=== PATIENT | male | born 1965 | race Caucasian/White ===

== ENCOUNTER 2016-02-27 18:19 | Emergency (ER) | payer BC, OTHER ==
[2016-02-27] MEDS ORDERED: ASPIRIN 81 MG CHEW PO STA (18:43)
[2016-02-27] MEDS ORDERED: NITROGLYCERIN OINT 1 INCH/GM PACKET TOPICAL STA (18:43)
--- NOTE | 2016-02-27 18:48 | ED ---
General Adult HPI - General Chief complaint: Chest Pain Stated complaint: chest pain Time Seen by Provider: 02/27/16 18:30 Source: patient, RN notes reviewed Mode of arrival: wheelchair Limitations: no limitations - History of Present Illness Initial comments: This is a 50-year-old male who presents emergency Department complaining of left -sided chest pain under his armpit. Patient states the pain radiates to the center of his chest. Patient states movement with the left arm increases the pain. Patient states if he sits still and doesn't move or take a deep breath there is no pain. Patient states it does seem to be worse with deep breathing or significantly worse with coughing. Patient states she's mildly short of breath per patient states it started yesterday and got worse throughout the day today. Patient denies any diaphoresis. Patient denies any nausea. Patient denies any recent heavy lifting or exercise that is new. Patient denies any abdominal pain patient denies vomiting or diarrhea per patient denies any recent fever chills or cough. Patient does state he is a smoker he denies hypertension diabetes or high cholesterol. Patient denies any heart disease in the family he denies having any heart disease. Eyes any headache patient denies numbness weakness. Patient denies any lightheadedness dizziness or near syncopal episode. - Related Data Home Medications Medication Instructions Recorded Confirmed No Known Home Medications [No 02/27/16 02/27/16 Known Home Medications] Allergies Allergy/AdvReac Type Severity Reaction Status Date / Time No Known Allergies Allergy Verified 02/27/16 18:34 Review of Systems ROS Statement: Those systems with pertinent positive or pertinent negative responses have been documented in the HPI. ROS Other: All systems not noted in ROS Statement are negative. Past Medical History Past Medical History: No Reported History History of Any Multi-Drug Resistant Organisms: None Reported Past Surgical History: Tonsillectomy Past Psychological History: No Psychological Hx Reported Smoking Status: Current every day smoker Past Alcohol Use History: None Reported Past Drug Use History: None Reported General Exam - General Exam Comments Initial Comments: GENERAL: Patient is well-developed and well-nourished. Patient is nontoxic and well- hydrated and is in mild distress. ENT: Neck is soft and supple. No significant lymphadenopathy is noted. Oropharynx is clear. Moist mucous membranes. Neck has full range of motion without eliciting any pain. EYES: The sclera were anicteric and conjunctiva were pink and moist. Extraocular movements were intact and pupils were equal round and reactive to light. Eyelids were unremarkable. PULMONARY: Unlabored respirations. Good breath sounds bilaterally. No audible rales rhonchi or wheezing was noted. CARDIOVASCULAR: There is a regular rate and rhythm without any murmurs gallops or rubs. Chest pain is reproducible under the armpit not in the center of the chest ABDOMEN: Soft and nontender with normal bowel sounds. No palpable organomegaly was noted. There is no palpable pulsatile mass. SKIN: Skin is clear with no lesions or rashes and otherwise unremarkable. NEUROLOGIC: Patient is alert and oriented x3. Cranial nerves II through XII are grossly intact. Motor and sensory are also intact. Normal speech, volume and content. Symmetrical smile. MUSCULOSKELETAL: Normal extremities with adequate strength and full range of motion. No lower extremity swelling or edema. No calf tenderness. LYMPHATICS: No significant lymphadenopathy is noted PSYCHIATRIC: Normal psychiatric evaluation. Normal interpersonal interactions appears functionally intact in deals appropriately with others. No signs of depression. Patient is mildly anxious Limitations: no limitations Course Vital Signs 02/27/16 02/27/16 02/27/16 18:24 18:50 19:20 Temperature 98.2 F Pulse Rate 86 97 98 Respiratory 20 18 Rate Blood Pressure 119/68 129/71 111/68 O2 Sat by Pulse 98 96 95 Oximetry 02/27/16 19:50 Temperature Pulse Rate 92 Respiratory Rate Blood Pressure 118/68 O2 Sat by Pulse 95 Oximetry Medical Decision Making - Medical Decision Making EKG shows normal sinus rhythm at 88 bpm OK interval is 136 QRS is 84 QT interval 346 QTC is 418. Patient's EKG shows no ST segment elevation or depression or T wave abnormalities are noted Patient's chest x-ray was normal. I gave the patient Toradol and significantly reduce his pain. Patient states she can only feel that he takes a very large breath now or moves his arm to its limits. - Lab Data Result diagrams: 02/27/16 18:47 02/27/16 18:47 Lab Results 02/27/16 02/27/16 02/27/16 Range/Units 18:47 18:47 18:47 WBC 11.0 H (3.8-10.6) k/uL RBC 5.44 (4.30-5.90) m/uL Hgb 16.3 (13.0-17.5) gm/dL Hct 47.7 (39.0-53.0) % MCV 87.6 (80.0-100.0) fL MCH 30.0 (25.0-35.0) pg MCHC 34.2 (31.0-37.0) g/dL RDW 13.2 (11.5-15.5) % Plt Count 315 (150-450) k/uL Neutrophils % 62 % Lymphocytes % 26 % Monocytes % 8 % Eosinophils % 2 % Basophils % 0 % Neutrophils # 6.8 (1.3-7.7) k/uL Lymphocytes # 2.9 (1.0-4.8) k/uL Monocytes # 0.8 (0-1.0) k/uL Eosinophils # 0.2 (0-0.7) k/uL Basophils # 0.0 (0-0.2) k/uL PT (9.0-12.0) sec INR (<1.1) APTT (22.0-30.0) sec D-Dimer (<0.60) mg/L FEU Sodium 144 (137-145) mmol/L Potassium 4.4 (3.5-5.1) mmol/L Chloride 109 H (98-107) mmol/L Carbon Dioxide 25 (22-30) mmol/L Anion Gap 10 mmol/L BUN 14 (9-20) mg/dL Creatinine 0.80 (0.66-1.25) mg/dL Est GFR (MDRD) Af Amer >60 (>60 ml/min/1.73 sqM) Est GFR (MDRD) Non-Af >60 (>60 ml/min/1.73 sqM) Glucose 98 (74-99) mg/dL Calcium 9.2 (8.4-10.2) mg/dL Magnesium 2.0 (1.6-2.3) mg/dL Total Bilirubin 0.5 (0.2-1.3) mg/dL AST 31 (17-59) U/L ALT 53 (21-72) U/L Alkaline Phosphatase 83 (38-126) U/L Total Creatine Kinase 291 H (55-170) U/L CK-MB (CK-2) 1.5 (0.0-2.4) ng/mL CK-MB (CK-2) Rel Index 0.5 Troponin I <0.012 (0.000-0.034) ng/mL Total Protein 6.5 (6.3-8.2) g/dL Albumin 4.3 (3.5-5.0) g/dL 02/27/16 Range/Units 18:47 WBC (3.8-10.6) k/uL RBC (4.30-5.90) m/uL Hgb (13.0-17.5) gm/dL Hct (39.0-53.0) % MCV (80.0-100.0) fL MCH (25.0-35.0) pg MCHC (31.0-37.0) g/dL RDW (11.5-15.5) % Plt Count (150-450) k/uL Neutrophils % % Lymphocytes % % Monocytes % % Eosinophils % % Basophils % % Neutrophils # (1.3-7.7) k/uL Lymphocytes # (1.0-4.8) k/uL Monocytes # (0-1.0) k/uL Eosinophils # (0-0.7) k/uL Basophils # (0-0.2) k/uL PT 10.4 (9.0-12.0) sec INR 1.0 (<1.1) APTT 24.8 (22.0-30.0) sec D-Dimer 0.25 (<0.60) mg/L FEU Sodium (137-145) mmol/L Potassium (3.5-5.1) mmol/L Chloride (98-107) mmol/L Carbon Dioxide (22-30) mmol/L Anion Gap mmol/L BUN (9-20) mg/dL Creatinine (0.66-1.25) mg/dL Est GFR (MDRD) Af Amer (>60 ml/min/1.73 sqM) Est GFR (MDRD) Non-Af (>60 ml/min/1.73 sqM) Glucose (74-99) mg/dL Calcium (8.4-10.2) mg/dL Magnesium (1.6-2.3) mg/dL Total Bilirubin (0.2-1.3) mg/dL AST (17-59) U/L ALT (21-72) U/L Alkaline Phosphatase (38-126) U/L Total Creatine Kinase (55-170) U/L CK-MB (CK-2) (0.0-2.4) ng/mL CK-MB (CK-2) Rel Index Troponin I (0.000-0.034) ng/mL Total Protein (6.3-8.2) g/dL Albumin (3.5-5.0) g/dL Disposition Clinical Impression: Pleuritic chest pain Disposition: HOME SELF-CARE Condition: Good Instructions: Pleurisy (ED) Additional Instructions: Patient should take 600 mg of Motrin every 6 hours Referrals: Farhan Harris MD [Primary Care Provider] - 1-2 days Time of Disposition: 20:34
--- NOTE | 2016-02-27 19:09 | XR ---
EXAMINATION TYPE: XR chest 2V DATE OF EXAM: 02/27/2016 6:59 PM COMPARISON: Prior chest x-ray November 19, 2012 HISTORY: Chest pain and shortness of breath for 2 days. TECHNIQUE: Frontal and lateral views of the chest are obtained. FINDINGS: There is no suspicious focal air space opacity, pleural effusion, or pneumothorax seen. T here is minimal right basilar linear atelectasis. The cardiac silhouette size is within normal limits . The osseous structures are intact. IMPRESSION: No worrisome acute cardiopulmonary process on current study.
[2016-02-27 19:14] LABS: Basophils % (A) 0 %; CH 30.4; CHCM 34.8; Eosinophils # (A) 0.2 k/uL (0-0.7); Eosinophils % (A) 2 %; HCT 47.7 % (39.0-53.0); HDW 2.75; HGB 16.3 gm/dL (13.0-17.5); Luc # (Auto) 0.24; Luc % (Auto) 2; Lymphocytes # (A) 2.9 k/uL (1.0-4.8); Lymphocytes % (A) 26 %; MCHC 34.2 g/dL (31.0-37.0); MCV 87.6 fL (80.0-100.0); Mean Platelet Volume 6.6; Monocytes # (A) 0.8 k/uL (0-1.0); Monocytes % (A) 8 %; Neutrophils # (A) 6.8 k/uL (1.3-7.7); Neutrophils % (A) 62 %; RBC 5.44 m/uL (4.30-5.90); RDW 13.2 % (11.5-15.5); WBC (Perox) 10.95
[2016-02-27 19:22] LABS: ALT 53 U/L (21-72); AST 31 U/L (17-59); Alkaline Phosphatase 83 U/L (38-126); Anion Gap 10 mmol/L; Blood Urea Nitrogen 14 mg/dL (9-20); Calcium 9.2 mg/dL (8.4-10.2); Carbon Dioxide 25 mmol/L (22-30); Chloride 109 mmol/L (98-107); Glucose 98 mg/dL (74-99); Non-African American GFR(MDRD) >60 (>60 ml/min/1.73 sqM); Potassium 4.4 mmol/L (3.5-5.1); Sodium 144 mmol/L (137-145); Total Bilirubin 0.5 mg/dL (0.2-1.3); Total Protein 6.5 g/dL (6.3-8.2)
[2016-02-27 19:28] LABS: Partial Thromboplastin Time 24.8 sec (22.0-30.0); Prothrombin Time 10.4 sec (9.0-12.0)
[2016-02-27 19:36] LABS: Creatine Kinase 291 U/L (55-170)
[2016-02-27 19:49] LABS: Creatine Kinase MB 1.5 ng/mL (0.0-2.4); Troponin I <0.012 ng/mL (0.000-0.034)
[2016-02-27] MEDS ORDERED: KETOROLAC 60 MG/2 ML VIAL IVP STA (19:58)
[2016-02-27 20:48] VITALS: BP 120/66; PULSE 85; RESP 16; TEMP 97.5
== END 2016-02-27 20:47 | disposition home or self-care (01) ==
LOC: EC 18:19
DX: R07.81 Pleurodynia (principal); F17.200 Nicotine dependence, unspecified, uncomplicated; R06.02 Shortness of breath
CPT/HCPCS: 96374; 99285; 36415; 93005; 85379; 80053; 82550; 82553; 83735; 84484; 85025; 85610; 85730; 71020; J1885

== ENCOUNTER 2016-04-05 20:52 | Emergency (ER) | payer OTHER ==
[2016-04-05 21:05] VITALS: TEMP 98.9
[2016-04-05] MEDS ORDERED: ORPHENADRINE 30 MG/ML 2 ML VIAL IM STA (21:16)
[2016-04-05] MEDS ORDERED: methylPREDNISolone SOD SUCCI 125 MG/2 ML VIAL IM ONE (21:16)
[2016-04-05] MEDS ORDERED: KETOROLAC 60 MG/2 ML VIAL IM STA (21:16)
--- NOTE | 2016-04-05 21:19 | ED ---
Back Pain HPI - General Chief Complaint: Back Pain/Injury Stated Complaint: Back injury Time Seen by Provider: 04/05/16 21:08 Source: patient, RN notes reviewed Limitations: no limitations - History of Present Illness Initial Comments: This is a 51-year-old male who presents with complaints of the onset of back pain over last several days. He states that sharp and radiates down into his left buttock he states it initially started on the right low back area but the left greater than right he denies any loss of function to his lower extremities denies any urinary or fecal incontinence. he is not believe he had any previous back injuries but he still a heavy lifting. pain is 9/10 in severity MD Complaint: back pain - Related Data Previous Rx's Medication Instructions Recorded Cyclobenzaprine [Flexeril] 10 mg PO TID #14 tab 04/05/16 Hydrocodone/Acetaminophen [[place] 1 each PO Q6HR PRN #20 tab 04/05/16 5-325] Ibuprofen [Motrin] 800 mg PO Q6HR PRN #20 tab 04/05/16 predniSONE 20 mg PO BID #10 tab 04/05/16 Allergies Allergy/AdvReac Type Severity Reaction Status Date / Time No Known Allergies Allergy Verified 04/05/16 21:25 Review of Systems ROS Statement: Those systems with pertinent positive or pertinent negative responses have been documented in the HPI. ROS Other: All systems not noted in ROS Statement are negative. Past Medical History Past Medical History: No Reported History Additional Past Medical History / Comment(s): chronic back pain History of Any Multi-Drug Resistant Organisms: None Reported Past Surgical History: Hernia Repair, Tonsillectomy Past Psychological History: No Psychological Hx Reported Smoking Status: Current every day smoker Past Alcohol Use History: None Reported Past Drug Use History: None Reported General Exam - General Exam Comments Initial Comments: This is a well-developed well-nourished awake alert oriented 3 male Limitations: no limitations General appearance: alert, anxious, in distress Head exam: Present: atraumatic Neck exam: Present: normal inspection. Absent: tenderness, meningismus, lymphadenopathy Respiratory exam: Present: normal lung sounds bilaterally. Absent: respiratory distress, wheezes, rales, rhonchi, stridor Cardiovascular Exam: Present: regular rate, normal rhythm, normal heart sounds. Absent: systolic murmur, diastolic murmur, rubs, gallop, clicks Extremities exam: Present: normal inspection, full ROM, normal capillary refill. Absent: tenderness, pedal edema, joint swelling, calf tenderness Back exam: Present: tenderness (There is tenderness to palpation over the bilateral SI joints with tenderness over the left gluteus. The exam is consistent with sciatica.) Neurological exam: Present: alert, oriented X3, CN II-XII intact, reflexes normal. Absent: motor sensory deficit Psychiatric exam: Present: anxious Skin exam: Present: warm, dry, intact, normal color. Absent: rash Course Vital Signs 04/05/16 21:02 Temperature 98.9 F Pulse Rate 102 H Respiratory 20 Rate Blood Pressure 131/83 O2 Sat by Pulse 99 Oximetry - Reevaluation(s) Reevaluation #1: 04/05/16 22:14 The patient did have a long conversation regarding smoking and cessation. He was ultimately referred to his doctor for medical 80 states he cannot stop cold turkey by himself. The conversation lasted 3.1 minutes Medical Decision Making - Medical Decision Making I did discuss findings with the patient. He has received his medication and will be discharged home he is urged follow-up with his doctor return when necessary he'll be placed on appropriate medication for a short course. - Lab Data Lab Results 04/05/16 Range/Units 21:15 Urine Color Yellow Urine Appearance Clear (Clear) Urine pH 5.5 (5.0-8.0) Ur Specific [place] 1.027 (1.001-1.035) Urine Protein Trace H (Negative) Urine Glucose (UA) 2+ H (Negative) Urine Ketones Negative (Negative) Urine Blood Negative (Negative) Urine Nitrate Negative (Negative) Urine Bilirubin Negative (Negative) Urine Urobilinogen 2.0 (<2.0) mg/dL Ur Leukocyte Esterase Negative (Negative) - Radiology Data Radiology results: report reviewed (I did review the imaging and report no acute findings.), image reviewed Disposition Clinical Impression: Mechanical back pain, Sciatica Disposition: HOME SELF-CARE Condition: Good Instructions: Acute Low Back Pain (ED), Chronic Back Pain (ED), Sciatica (ED) Prescriptions: Cyclobenzaprine [Flexeril] 10 mg PO TID #14 tab Hydrocodone/Acetaminophen [[place] 5-325] 1 each PO Q6HR PRN #20 tab PRN Reason: Pain Ibuprofen [Motrin] 800 mg PO Q6HR PRN #20 tab PRN Reason: Pain predniSONE 20 mg PO BID #10 tab
[2016-04-05 21:54] LABS: Appearance,Urine Clear (Clear); Bilirubin,Urine Negative (Negative); Glucose,Urine (UA) 2+ (Negative); Ketones,Urine Negative (Negative); Leukocyte Esterase,Urine Negative (Negative); Nitrite,Urine Negative (Negative); PH, Urine 5.5 (5.0-8.0); Protein,Urine Trace (Negative); Specific Gravity,Urine 1.027 (1.001-1.035); UA Billing (MACRO vs. MICRO) CHEM
--- NOTE | 2016-04-05 22:01 | XR ---
Lumbosacral spine HISTORY: Low back pain 5 views of the lumbosacral spine No comparisons There is a levoscoliosis centered at L3. Sclerosis present at the sacroiliac joints may be due to str ess changes. No spondylolysis or spondylolisthesis. Lumbar vertebral bodies show preserved height and bone mineralization. Loss of disc height at L5-S1. Multilevel spondylosis noted. IMPRESSION: Degenerative disc disease and scoliosis. Consider lumbar MRI.
[2016-04-05 22:40] VITALS: BP 142/99; PULSE 69; RESP 18
== END 2016-04-05 22:38 | disposition home or self-care (01) ==
LOC: EC 20:52
DX: M54.40 Lumbago with sciatica, unspecified side (principal); F17.200 Nicotine dependence, unspecified, uncomplicated
CPT/HCPCS: 81003; 72110; 99283; 96372 ×3; J2360; J2930; J1885

== ENCOUNTER → 2016-05-10 | Outpatient (CLI) | payer OTHER ==
--- NOTE | 2016-05-10 09:40 | MR ---
EXAMINATION TYPE: MR lumbar spine wo con DATE OF EXAM: 05/10/2016 9:25 AM COMPARISON: X-ray 04/05/2016 HISTORY: Back pain TECHNIQUE: T1 and T2 axial and sagittal images of the lumbar spine are submitted. FINDINGS: There is no abnormal signal seen within the visualized spinal cord or paraspinal soft tissu es. There is an indeterminate lesion involving the upper pole of the left kidney. CT scan recommended . There is a simple appearing right renal cyst. Thickening of the adrenal glands is nonspecific. At L1-2 there is no disc herniation or canal stenosis. No foraminal encroachment. At L2-3 there is mild disc desiccation. Mild hypertrophic change of the facets. No focal herniation o r canal stenosis. No foraminal encroachment. At L3-4 there is mild disc desiccation but no disc herniation or canal stenosis. Mild hypertrophic ch [place] of the facets. Neural foramina remain patent. At L4-5 there is mild circumferential disc bulging with facet arthropathy. Mild effacement of thecal sac and mild bilateral foraminal encroachment. At L5-S1 there is mild to moderate degenerative disc disease. No canal stenosis. Mild facet arthropa thy. Minimal circumferential disc bulging. Mild to moderate bilateral foraminal encroachment. IMPRESSION: 1. Multilevel mild to moderate degenerative disc disease with disc bulging most pronounced at L4-5 wi th mild effacement of thecal sac and mild bilateral foraminal encroachment. 2. Mild to moderate foraminal encroachment L5-S1 due to hypertrophic changes. 3. There is a question of an upper pole left renal lesion. Either ultrasound or CT of the abdomen rec ommended for further evaluation.
== END ==
LOC: RADMRIMAIN 08:35
PROVIDERS: ATTEND Internal Medicine
DX: M51.36 Other intervertebral disc degeneration, lumbar region (principal); M51.37 Other intervertebral disc degeneration, lumbosacral region; M51.26 Other intervertebral disc displacement, lumbar region; M48.06 Spinal stenosis, lumbar region
CPT/HCPCS: 72148

== ENCOUNTER → 2016-06-06 | Outpatient (CLI) | payer OTHER ==
--- NOTE | 2016-06-06 15:05 | US ---
EXAMINATION TYPE: US kidneys/renal and bladder DATE OF EXAM: 06/06/2016 2:43 PM COMPARISON: Correlation MRI 05/10/2016 CLINICAL HISTORY: 51-year-old male N28.9 LEFT RENAL LESION. Left renal lesion seen on MRI. TECHNIQUE: Multiple sonographic images of the kidneys and bladder are obtained. FINDINGS: Right Kidney: 11.3 x 5.9 x 5.3 cm without hydronephrosis. There is a tiny central 6 mm cyst. Left Kidney: 11.0 x 5.9 x 5.8 cm without hydronephrosis. There is a slightly lobulated contour withou t a discrete renal mass with particular attention to the upper pole. 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 Bilateral Jets seen: Only one ureteral jet is seen during the course of the exam. IMPRESSION: 1. No hydronephrosis. 2. No discrete mass is seen involving the left kidney with particular attention to the upper pole. MR I findings are suspected to be artifactual. Recommend 6 month follow-up renal ultrasound to reassess.
== END | disposition home or self-care (01) ==
LOC: RADUSWWP 14:08
PROVIDERS: ATTEND Internal Medicine
DX: N28.9 Disorder of kidney and ureter, unspecified (principal)
CPT/HCPCS: 76770

== ENCOUNTER 2017-03-04 09:44 | Inpatient (IN) | payer OTHER ==
[2017-03-04] MEDS ORDERED: ONDANSETRON 4 MG/2 ML VIAL IVP STA (09:55)
[2017-03-04] MEDS ORDERED: SODIUM CHLORIDE 0.9% 1,000 ML IV STA (09:55)
[2017-03-04] MEDS ORDERED: HYDROmorphone 2 MG/ML 1 ML SYRINGE IVP STA (09:57)
--- NOTE | 2017-03-04 10:21 | ED ---
Abdominal Pain HPI - General Chief Complaint: Abdominal Pain Stated Complaint: Abdominal pain Time Seen by Provider: 03/04/17 09:50 Source: patient Mode of arrival: wheelchair Limitations: no limitations - History of Present Illness Initial Comments: 51-year-old male patient presents to the emergency department states complaints of right lower quadrant abdominal pain. Patient states that the pain started around 0400 this morning. He states the pain is sharp in nature. States it worsens when he tries to stand up or with any movement. He is currently rating his pain as 7 out of 10 on a pain scale. States he has been nauseated however has not vomited. He denies ever having pain similar to this in the past. He denies any constipation or diarrhea. Patient denies any recent rash, fever, chills, shortness breath, chest pain, back pain, numbness, tingling, dizziness, weakness, hematuria, dysuria, urinary urgency, urinary frequency, headache, visual changes, or any other complaints. - Related Data Home Medications Medication Instructions Recorded Confirmed oxyCODONE-APAP 10-325MG [Percocet 1 tab PO QID PRN 03/04/17 03/04/17 10-325 mg] Allergies Allergy/AdvReac Type Severity Reaction Status Date / Time No Known Allergies Allergy Verified 03/04/17 11:42 Review of Systems ROS Statement: Those systems with pertinent positive or pertinent negative responses have been documented in the HPI. ROS Other: All systems not noted in ROS Statement are negative. Past Medical History Past Medical History: No Reported History Additional Past Medical History / Comment(s): chronic back pain History of Any Multi-Drug Resistant Organisms: None Reported Past Surgical History: Hernia Repair, Tonsillectomy Past Psychological History: No Psychological Hx Reported Smoking Status: Current every day smoker Past Alcohol Use History: None Reported Past Drug Use History: None Reported General Exam Limitations: no limitations Course Vital Signs 03/04/17 03/04/17 09:45 11:29 Temperature 98.0 F Pulse Rate 108 H 92 Respiratory 20 20 Rate Blood Pressure 121/64 109/56 O2 Sat by Pulse 98 92 L Oximetry Medical Decision Making - Medical Decision Making 51-year-old male patient presents to the emergency department today for evaluation of right lower quadrant abdominal pain. Physical examination did reveal right lower quadrant abdominal tenderness and abdominal guarding. Labs reviewed and did reveal a white blood cell count of 16. KUB x-ray of the abdomen was normal. CT of the abdomen and pelvis was positive for acute appendicitis. Patient will be admitted to Dr. Peters. Zosyn will be started. IV hydration and pain medication will be provided. - Lab Data Result diagrams: 03/04/17 10:30 03/04/17 10:30 Lab Results 03/04/17 03/04/17 03/04/17 Range/Units 10:30 10:30 10:30 WBC 16.0 H (3.8-10.6) k/uL RBC 5.87 (4.30-5.90) m/uL Hgb 17.4 (13.0-17.5) gm/dL Hct 50.8 (39.0-53.0) % MCV 86.5 (80.0-100.0) fL MCH 29.6 (25.0-35.0) pg MCHC 34.2 (31.0-37.0) g/dL RDW 12.9 (11.5-15.5) % Plt Count 341 (150-450) k/uL Neutrophils % 79 % Lymphocytes % 12 % Monocytes % 6 % Eosinophils % 1 % Basophils % 0 % Neutrophils # 12.7 H (1.3-7.7) k/uL Lymphocytes # 1.9 (1.0-4.8) k/uL Monocytes # 1.0 (0-1.0) k/uL Eosinophils # 0.2 (0-0.7) k/uL Basophils # 0.1 (0-0.2) k/uL Sodium 142 (137-145) mmol/L Potassium 5.1 (3.5-5.1) mmol/L Chloride 104 (98-107) mmol/L Carbon Dioxide 26 (22-30) mmol/L Anion Gap 12 mmol/L BUN 21 H (9-20) mg/dL Creatinine 1.00 (0.66-1.25) mg/dL Est GFR (MDRD) Af Amer >60 (>60 ml/min/1.73 sqM) Est GFR (MDRD) Non-Af >60 (>60 ml/min/1.73 sqM) Glucose 105 H (74-99) mg/dL Plasma Lactic Acid [place] 0.9 (0.7-2.0) mmol/L Calcium 9.5 (8.4-10.2) mg/dL Total Bilirubin 0.5 (0.2-1.3) mg/dL AST 25 (17-59) U/L ALT 49 (21-72) U/L Alkaline Phosphatase 99 (38-126) U/L Total Protein 7.3 (6.3-8.2) g/dL Albumin 4.6 (3.5-5.0) g/dL Amylase 79 (30-110) U/L Lipase 108 (23-300) U/L Urine Color Urine Appearance (Clear) Urine pH (5.0-8.0) Ur Specific [place] (1.001-1.035) Urine Protein (Negative) Urine Glucose (UA) (Negative) Urine Ketones (Negative) Urine Blood (Negative) Urine Nitrite (Negative) Urine Bilirubin (Negative) Urine Urobilinogen (<2.0) mg/dL Ur Leukocyte Esterase (Negative) 03/04/17 Range/Units 11:28 WBC (3.8-10.6) k/uL RBC (4.30-5.90) m/uL Hgb (13.0-17.5) gm/dL Hct (39.0-53.0) % MCV (80.0-100.0) fL MCH (25.0-35.0) pg MCHC (31.0-37.0) g/dL RDW (11.5-15.5) % Plt Count (150-450) k/uL Neutrophils % % Lymphocytes % % Monocytes % % Eosinophils % % Basophils % % Neutrophils # (1.3-7.7) k/uL Lymphocytes # (1.0-4.8) k/uL Monocytes # (0-1.0) k/uL Eosinophils # (0-0.7) k/uL Basophils # (0-0.2) k/uL Sodium (137-145) mmol/L Potassium (3.5-5.1) mmol/L Chloride (98-107) mmol/L Carbon Dioxide (22-30) mmol/L Anion Gap mmol/L BUN (9-20) mg/dL Creatinine (0.66-1.25) mg/dL Est GFR (MDRD) Af Amer (>60 ml/min/1.73 sqM) Est GFR (MDRD) Non-Af (>60 ml/min/1.73 sqM) Glucose (74-99) mg/dL Plasma Lactic Acid [place] (0.7-2.0) mmol/L Calcium (8.4-10.2) mg/dL Total Bilirubin (0.2-1.3) mg/dL AST (17-59) U/L ALT (21-72) U/L Alkaline Phosphatase (38-126) U/L Total Protein (6.3-8.2) g/dL Albumin (3.5-5.0) g/dL Amylase (30-110) U/L Lipase (23-300) U/L Urine Color Yellow Urine Appearance Clear (Clear) Urine pH 6.5 (5.0-8.0) Ur Specific [place] 1.018 (1.001-1.035) Urine Protein Negative (Negative) Urine Glucose (UA) Negative (Negative) Urine Ketones Negative (Negative) Urine Blood Negative (Negative) Urine Nitrite Negative (Negative) Urine Bilirubin Negative (Negative) Urine Urobilinogen <2.0 (<2.0) mg/dL Ur Leukocyte Esterase Negative (Negative) - Radiology Data Radiology results: report reviewed, image reviewed CT of the abdomen and pelvis with contrast was obtained, report was reviewed in its entirety. Impression by Dr. Gamez shows evidence of acute appendicitis. KUB x-ray of the abdomen shows normal bowel gas pattern. No evidence of obstruction or free air. No unusual calcifications. Impression by Dr. Gamez shows normal abdomen. Disposition Clinical Impression: Acute appendicitis Disposition: HOME SELF-CARE Condition: Serious Referrals: Farhan Harris MD [Primary Care Provider] - 1-2 days Decision to Admit Reason: Admit from EC Decision Date: 03/04/17 Decision Time: 13:08
[2017-03-04 11:00] LABS: Basophils # (A) 0.1 k/uL (0-0.2); Basophils % (A) 0 %; Eosinophils # (A) 0.2 k/uL (0-0.7); Eosinophils % (A) 1 %; HCT 50.8 % (39.0-53.0); HGB 17.4 gm/dL (13.0-17.5); Lymphocytes # (A) 1.9 k/uL (1.0-4.8); Lymphocytes % (A) 12 %; MCH 29.6 pg (25.0-35.0); MCHC 34.2 g/dL (31.0-37.0); MCV 86.5 fL (80.0-100.0); Mean Platelet Volume 6.8; Monocytes % (A) 6 %; Neutrophils # (A) 12.7 k/uL (1.3-7.7); Neutrophils % (A) 79 %; Platelet Count 341 k/uL (150-450); RBC 5.87 m/uL (4.30-5.90); RDW 12.9 % (11.5-15.5)
[2017-03-04 11:01] LABS: ALT 49 U/L (21-72); AST 25 U/L (17-59); Albumin 4.6 g/dL (3.5-5.0); Alkaline Phosphatase 99 U/L (38-126); Amylase 79 U/L (30-110); Anion Gap 12 mmol/L; Blood Urea Nitrogen 21 mg/dL (9-20); Calcium 9.5 mg/dL (8.4-10.2); Carbon Dioxide 26 mmol/L (22-30); Chloride 104 mmol/L (98-107); Glucose 105 mg/dL (74-99); Lipase 108 U/L (23-300); Potassium 5.1 mmol/L (3.5-5.1); Sodium 142 mmol/L (137-145); Total Bilirubin 0.5 mg/dL (0.2-1.3); Total Protein 7.3 g/dL (6.3-8.2)
--- NOTE | 2017-03-04 11:03 | XR ---
EXAMINATION TYPE: XR KUB , 2 VIEWS DATE OF EXAM ORDERED: 03/04/2017 HISTORY: abdominal pain. COMPARISON: None. FINDINGS: The lung bases are clear. Within the abdomen, the abdominal gas pattern is normal. There is no evidence of obstruction or free air. No unusual calcifications are seen. IMPRESSION: NORMAL ABDOMEN.
[2017-03-04] MEDS ORDERED: RX INFO: IV CONTRAST WAS GIVEN 1 EACH MISC MISCELLANE PRN (11:21)
[2017-03-04 11:39] LABS: Appearance,Urine Clear (Clear); Bilirubin,Urine Negative (Negative); Blood,Urine Negative (Negative); Color,Urine Yellow; Glucose,Urine (UA) Negative (Negative); Ketones,Urine Negative (Negative); Leukocyte Esterase,Urine Negative (Negative); Nitrite,Urine Negative (Negative); PH, Urine 6.5 (5.0-8.0); Protein,Urine Negative (Negative); Specific Gravity,Urine 1.018 (1.001-1.035); Urobilinogen,Urine <2.0 mg/dL (<2.0)
--- NOTE | 2017-03-04 12:21 | CT ---
EXAMINATION TYPE: CT abdomen pelvis w con DATE OF EXAM: 03/04/2017 REFERENCE: Previous study dated 11/17/2012. HISTORY: Pain HISTORY: Abdominal pain, Right lower quadrant REFERENCE: NONE CT DLP: 1196.50 mGy Automated exposure control for dose reduction was used. TECHNIQUE: Helical acquisition through the abdomen and pelvis was obtained following the oral ingesti on of without Oral Contrast and following intravenous administration of 100 ml mL of Omnipaque 300. T he data was reformatted in axial, coronal and sagittal projections. FINDINGS: There is mild dependent atelectasis in the dependent portions of the lungs. There is no pl eural or pericardial fluid. The heart is not enlarged. Within the abdomen, the liver, spleen and gallbladder are normal. Both adrenal glands are normal. Both kidneys demonstrate function and appear morphologically normal. The pancreas is unremarkable. There is no significant retroperitoneal, iliac or inguinal adenopathy. The bladder is unremarkable. There is no significant diverticular change and there is no radiographic evidence of diverticulitis. The appendix is grossly thickened measuring 1.1 cm. There is mild inflammatory change adjacent to the appendix. There is no evidence of perforation or abscess formation. Small bowel loops are normal. No free fluid and no free air is seen. No bony lesion is seen. IMPRESSION: EVIDENCE OF ACUTE APPENDICITIS.
[2017-03-04] MEDS ORDERED: HYDROmorphone 2 MG/ML 1 ML SYRINGE IVP PRN (13:01)
[2017-03-04] MEDS ORDERED: ONDANSETRON 4 MG/2 ML VIAL IVP PRN (13:01)
[2017-03-04] MEDS ORDERED: NALOXONE 0.4 MG/ML 1 ML VIAL IV PRN ×2 (13:01→16:35)
[2017-03-04] MEDS ORDERED: PIPERACILLIN-TAZOBACTAM 3.375 GM in DEXTROSE/WATER 1 50ML.BAG IVPB STA (13:08)
[2017-03-04] MEDS: SODIUM CHLORIDE 0.9% 1,000 ML IV SCH (13:44)
[2017-03-04 14:25] VITALS: BMI 29.9
--- NOTE | 2017-03-04 14:58 | P.GSHP ---
History of Present Illness H&P Date: 03/04/17 Chief Complaint: Acute appendicitis Patient minute to the hospital with right lower quadrant pain. This began yesterday morning. He has had chills but no fevers. White blood cell count is elevated. No nausea or vomiting. No change in bowel habits. CAT scan showed acute appendicitis. The patient had a previous attempted laparoscopic inguinal hernia repair but apparently they could not obtain insufflation at the umbilicus. He was told he had scar tissue there. He may have a small umbilical hernia. - Review of Systems Comment: The patient denies any acute changes in vision or hearing, no dysphagia or odynophagia, no chest pain or shortness of breath, no dysuria or hematuria, no headache, no runny nose, no rectal bleeding or melena, no unexplained weight loss Past Medical History Past Medical History: No Reported History Additional Past Medical History / Comment(s): chronic back pain, Blind in right eye, torn muscle in left shoulder History of Any Multi-Drug Resistant Organisms: None Reported Past Surgical History: Hernia Repair, Tonsillectomy Past Psychological History: No Psychological Hx Reported Smoking Status: Current every day smoker Past Alcohol Use History: None Reported Past Drug Use History: None Reported Medications and Allergies Home Medications Medication Instructions Recorded Confirmed Type oxyCODONE-APAP 10-325MG [Percocet 1 tab PO QID PRN 03/04/17 03/04/17 History 10-325 mg] Allergies Allergy/AdvReac Type Severity Reaction Status Date / Time No Known Allergies Allergy Verified 03/04/17 11:42 Surgical - Exam Vital Signs Temp Pulse Resp BP Pulse Ox 98.0 F 108 H 20 121/64 98 03/04/17 09:45 03/04/17 09:45 03/04/17 09:45 03/04/17 09:45 03/04/17 09:45 Physical exam: General: Well-developed, well-nourished HEENT: Normocephalic, sclerae nonicteric Abdomen: Right lower quadrant tenderness with rebound, previous scars noted, small umbilical hernia Extremities: No edema Neuro: Alert and oriented Results - Labs 03/04/17 10:30 03/04/17 10:30 Abnormal Lab Results - Last 24 Hours (Table) 03/04/17 03/04/17 Range/Units 10:30 10:30 WBC 16.0 H (3.8-10.6) k/uL Neutrophils # 12.7 H (1.3-7.7) k/uL BUN 21 H (9-20) mg/dL Glucose 105 H (74-99) mg/dL Diabetes panel 03/04/17 Range/Units 10:30 Sodium 142 (137-145) mmol/L Potassium 5.1 (3.5-5.1) mmol/L Chloride 104 (98-107) mmol/L Carbon Dioxide 26 (22-30) mmol/L BUN 21 H (9-20) mg/dL Creatinine 1.00 (0.66-1.25) mg/dL Glucose 105 H (74-99) mg/dL Calcium 9.5 (8.4-10.2) mg/dL AST 25 (17-59) U/L ALT 49 (21-72) U/L Alkaline Phosphatase 99 (38-126) U/L Total Protein 7.3 (6.3-8.2) g/dL Albumin 4.6 (3.5-5.0) g/dL Calcium panel 03/04/17 Range/Units 10:30 Calcium 9.5 (8.4-10.2) mg/dL Albumin 4.6 (3.5-5.0) g/dL Pituitary panel 03/04/17 Range/Units 10:30 Sodium 142 (137-145) mmol/L Potassium 5.1 (3.5-5.1) mmol/L Chloride 104 (98-107) mmol/L Carbon Dioxide 26 (22-30) mmol/L BUN 21 H (9-20) mg/dL Creatinine 1.00 (0.66-1.25) mg/dL Glucose 105 H (74-99) mg/dL Calcium 9.5 (8.4-10.2) mg/dL Adrenal panel 03/04/17 Range/Units 10:30 Sodium 142 (137-145) mmol/L Potassium 5.1 (3.5-5.1) mmol/L Chloride 104 (98-107) mmol/L Carbon Dioxide 26 (22-30) mmol/L BUN 21 H (9-20) mg/dL Creatinine 1.00 (0.66-1.25) mg/dL Glucose 105 H (74-99) mg/dL Calcium 9.5 (8.4-10.2) mg/dL Total Bilirubin 0.5 (0.2-1.3) mg/dL AST 25 (17-59) U/L ALT 49 (21-72) U/L Alkaline Phosphatase 99 (38-126) U/L Total Protein 7.3 (6.3-8.2) g/dL Albumin 4.6 (3.5-5.0) g/dL Assessment and Plan (1) Acute appendicitis Narrative/Plan: Begin IV antibiotics. Will proceed with laparoscopic possible open appendectomy. Risks of bleeding, infection, bowel injury, abscess, hernia, conversion to an open procedure, and anesthesia-related complications were discussed. He understands and wishes to proceed. Current Visit: Yes Status: Acute Code(s): K35.80 - UNSPECIFIED ACUTE APPENDICITIS SNOMED Code(s): 54693306
[2017-03-04] MEDS ORDERED: ROCURONIUM BROMIDE 10 MG/ML 10 ML VIAL IV ONE (15:42)
[2017-03-04] MEDS ORDERED: KETOROLAC 30 MG/ML 1 ML VIAL ONE (15:42)
[2017-03-04] MEDS ORDERED: PROPOFOL 10 MG/ML 20 ML VIAL IV ONE (15:42)
[2017-03-04] MEDS ORDERED: MIDAZOLAM 2 MG/2 ML VIAL ONE (15:42)
[2017-03-04] MEDS ORDERED: ONDANSETRON 4 MG/2 ML VIAL ONE (15:42)
[2017-03-04] MEDS ORDERED: LIDOCAINE 1% INJ 10MG/ML (20 ML MDV) ONE (15:42)
[2017-03-04] MEDS ORDERED: HYDROmorphone (PF) 1 MG/ML ONE (15:42)
[2017-03-04] MEDS ORDERED: fentaNYL (PF) 50 MCG/ML 2 ML AMP ONE (15:42)
[2017-03-04] MEDS ORDERED: IV FLUID CONTINUATION 1,000 ML IV ONE (15:42)
[2017-03-04] MEDS ORDERED: SUCCINYLCHOLINE CHLORIDE 100 MG/5 ML SYR IV ONE (15:42)
[2017-03-04] MEDS ORDERED: BUPIVACAINE (PF) 0.25% 30 ML VIAL SQ ONE (16:12)
[2017-03-04] MEDS ORDERED: oxyCODONE-APAP 7.5-325MG 1 EACH TAB PO PRN (16:35)
--- NOTE | 2017-03-04 16:39 | P.OP ---
Date of Procedure: 03/04/17 Procedure(s) Performed: PREOPERATIVE DIAGNOSIS: Acute appendicitis POSTOPERATIVE DIAGNOSIS: Same PROCEDURE: Laparoscopic appendectomy SURGEON: Kirk EBL: Total ANESTHESIA: General COMPLICATIONS: None OPERATIVE PROCEDURE: The patient was brought and placed on the operating table in the supine position. The patient was placed under general anesthesia. The abdomen was prepped and draped in the usual sterile fashion. A small vertical infraumbilical incision was made. The fascia was retracted anteriorly with Orly forceps. The Veress needle was advanced into the perineal cavity. The saline drop test was normal. Insufflation took place to 15 mmHg. A 5 mm trocar was then placed. An additional 5 mm suprapubic trocar was placed under direct visualization as well as a 12 mm left lower quadrant trocar under direct visualization. There was a small adhesion between the omentum and the right internal inguinal ring from prior hernia repair. This was lysed using electrocautery. The appendix was inspected. It was acutely inflamed. The mesoappendix was dissected. The base of the appendix was divided using a linear 45 mm intestinal stapler. The mesentery itself was divided using both the 12 no matter clipper and the malcolm load stapler. The area was then irrigated. No further purulence or bleeding was seen. The appendix was brought out of the peritoneal cavity through the left lower quadrant trocar site using an Endo Catch bag. The fascia at the 12 mm site was closed using a [id number] 0 Vicryl stitch. The skin at all 3 sites was closed using 4-0 Monocryl sutures. Steri-Strips and sterile dressings then applied. DISPOSITION: Stable to recovery room
[2017-03-04 17:16] VITALS: RESP 16
[2017-03-05] MEDS: PIPERACILLIN-TAZOBACTAM 3.375 GM in DEXTROSE/WATER 1 50ML.BAG IVPB SCH ×2 (01:03→09:00)
[2017-03-05] MEDS: SODIUM CHLORIDE 0.9% 1,000 ML IV SCH ×2 (05:21→09:00)
[2017-03-05] MEDS ORDERED: PANTOPRAZOLE 40 MG/10 ML VIAL IV SCH (09:00)
[2017-03-05 09:34] VITALS: BP 111/67; PULSE 71; TEMP 98
--- NOTE | 2017-03-05 12:08 | P.DS ---
Providers Date of admission: 03/04/17 13:04 Expected date of discharge: 03/05/17 Attending physician: Inder Bradley Primary care physician: Steven Real - Discharge Diagnosis(es) (1) Acute appendicitis Patient admitted yesterday through the emergency department with acute appendicitis. Patient was started on broad-spectrum antibiotics. He underwent laparoscopic appendectomy. Postoperatively the patient has done quite well. He is anxious to be discharged today. Incisions are clean and dry. No antibiotics planned post discharge. Prescription for pain medicine provided. He will follow-up with me in 1 week. Status: Acute Patient Condition at Discharge: Serious Plan - Discharge Summary Discharge Rx Participant: No New Discharge Prescriptions: New oxyCODONE HCL/ACETAMINOPHEN [Percocet 10-325 mg] 1 tab PO Q6HR PRN #20 tab PRN Reason: pain No Action oxyCODONE-APAP 10-325MG [Percocet 10-325 mg] 1 tab PO QID PRN PRN Reason: Pain Discharge Medication List oxyCODONE HCL/ACETAMINOPHEN [Percocet 10-325 mg] 1 tab PO Q6HR PRN #20 tab 03/04 [Rx] oxyCODONE-APAP 10-325MG [Percocet 10-325 mg] 1 tab PO QID PRN 03/04/17 [History] Follow up Appointment(s)/Referral(s): Inder Bradley MD [Medical Doctor] - 1 Week Farhan Harris MD [Primary Care Provider] - 1-2 days Patient Instructions/Handouts: *Surgery [facility] - Laparoscopic Cholecystectomy Discharge Instructions, Appendicitis (GEN), Laparoscopic Appendectomy (DC) Discharge Disposition: HOME SELF-CARE
== END 2017-03-05 10:33 | disposition home or self-care (01) | DRG 343 ==
LOC: EC 09:44 → 3SUR 13:04
PROVIDERS: ADMIT Surgery; ATTEND Surgery
PROC: 0DTJ4ZZ Resection of Appendix, Percutaneous Endoscopic Approach (ICD-10-PCS; principal; 2017-03-04 15:00)
DX: K35.80 Unspecified acute appendicitis (principal); F17.200 Nicotine dependence, unspecified, uncomplicated; G89.29 Other chronic pain; M54.9 Dorsalgia, unspecified; H54.61 Unqualified visual loss, right eye, normal vision left eye; Z79.891 Long term (current) use of opiate analgesic; Z87.19 Personal history of other diseases of the digestive system; Z90.89 Acquired absence of other organs
CPT/HCPCS: 36415; 74018; 74177; 80053; 81003; 82150; 83605; 83690; 85025; 87040; 88304; 96361; 96365; 96375; 99285

== ENCOUNTER → 2017-04-28 | Outpatient (CLI) | payer OTHER ==
--- NOTE | 2017-04-28 23:08 | MR ---
EXAMINATION TYPE: MR shoulder LT wo con DATE OF EXAM: 04/28/2017 COMPARISON: NONE HISTORY: Left Shoulder pain x6 months TECHNIQUE: Multiplanar, multisequence imaging of the left shoulder is performed without contrast. FINDINGS: There is full-thickness defect in the supraspinatus tendon anteriorly. There is no retraction. There is fluid around the biceps tendon. The subscapularis tendon is intact. The glenoid catrachita appear intact. There is mild shoulder joint effusion. I see no fracture. There is hypertrophic spurring at the AC joint and mild impingement on the supraspinatus muscle. IMPRESSION: Mild shoulder joint effusion. There is a small full-thickness rotator cuff tear in the supraspinatus tendon anteriorly. No retraction. Mild impingement on the supraspinatus muscle.
== END | disposition home or self-care (01) ==
LOC: RADMRIMAIN 20:16
PROVIDERS: ATTEND Internal Medicine
DX: M75.122 Complete rotator cuff tear or rupture of left shoulder, not specified as traumatic (principal); M25.812 Other specified joint disorders, left shoulder; M25.462 Effusion, left knee

== ENCOUNTER 2020-04-16 15:33 | Emergency (ER) | payer OTHER ==
[2020-04-16 15:40] VITALS: BP 132/85; PULSE 89; RESP 18; TEMP 97.5
--- NOTE | 2020-04-16 16:21 | XR ---
EXAMINATION TYPE: XR finger LT DATE OF EXAM: 04/16/2020 COMPARISON: Left hand x-ray November 18, 2012. HISTORY: Laceration injury with pain. TECHNIQUE: 3 views left second finger. FINDINGS: No acute fracture or dislocation is seen. The joint spaces are preserved. There is linear 2 to 3 mm foreign body in the soft tissue distal aspect of the distal phalanx. IMPRESSION: As above.
[2020-04-16] MEDS ORDERED: LIDOCAINE 1% INJ 10MG/ML (20 ML MDV) SQ ONE (16:24)
[2020-04-16] MEDS ORDERED: CEPHALEXIN 500MG STARTER PACK 4 CAP BTL PO STA (16:57)
--- NOTE | 2020-04-16 17:01 | ED ---
Wound/Laceration HPI - General Chief Complaint: Wound/Laceration Stated Complaint: Finger Laceration Time Seen by Provider: 04/16/20 15:45 Source: patient Mode of arrival: ambulatory Limitations: no limitations - History of Present Illness Initial Comments: 55-year-old male presenting for left index finger laceration. Patient states he was using a saw of sorts when he somehow "knicked it with his finger". Pateint states that the laceration was quite deep so he came to the ER. Pateint states his tetanus is UTD within last 10 years. Denies loss of sensation, decreased movement, or weakness of digit. Denies inability to pend at joint of affected digits. Denies uncontrolled bleeidng,or anticogaulation therapy. Denies other area of injury/ Remaining ROS (-) - Related Data Home Medications Medication Instructions Recorded Confirmed oxyCODONE-APAP 10-325MG [Percocet 1 tab PO QID PRN 03/04/17 03/04/17 10-325 mg] Previous Rx's Medication Instructions Recorded oxyCODONE HCL/ACETAMINOPHEN 1 tab PO Q6HR PRN #20 tab 03/04/17 [Percocet 10-325 mg] Cephalexin [Keflex] 500 mg PO Q8HR 7 Days #21 cap 04/16/20 Allergies Allergy/AdvReac Type Severity Reaction Status Date / Time No Known Allergies Allergy Verified 04/16/20 15:39 Review of Systems ROS Statement: Those systems with pertinent positive or pertinent negative responses have been documented in the HPI. ROS Other: All systems not noted in ROS Statement are negative. Past Medical History Past Medical History: No Reported History Additional Past Medical History / Comment(s): chronic back pain, Blind in right eye, torn muscle in left shoulder History of Any Multi-Drug Resistant Organisms: None Reported Past Surgical History: Hernia Repair, Tonsillectomy Past Psychological History: No Psychological Hx Reported Smoking Status: Current every day smoker Past Alcohol Use History: None Reported Past Drug Use History: None Reported General Exam - General Exam Comments Initial Comments: General: The patient is awake and alert, in no distress, and does not appear acutely ill. Eye: Pupils are equal, round and reactive to light, extra-ocular movements are intact. No nystagmus. There is normal conjunctiva bilaterally. No signs of icterus. Ears, nose, mouth and throat: There are moist mucous membranes and no oral lesions. Musculoskeletal: 3cm veritcally oriented laceration of the dorsal aspect of the the left index finger, tendon exposed but sheath appear intact. cannot identify foreign bodies on exploration. Normal ROM at the MCP, DIP and PIP joitns of the affected digit. Strength 5/5 at the MCP, DIP and PIP joints of the affected digit. Sensation intact proximal and distal to injury site. Radial and DP pulses equal bilaterally 2+. Capillary refill < 3 seconds. Neurological: A&O x 3. CN II-XII intact grossly, There are no obvious motor or sensory deficits. Coordination appears grossly intact. Speech is normal. Skin: Skin is warm and dry and no rashes or lesions are noted. Psychiatric: Cooperative, appropriate mood & affect, normal judgment. Limitations: no limitations Course Vital Signs 04/16/20 15:37 Temperature 97.5 F L Pulse Rate 89 Respiratory 18 Rate Blood Pressure 132/85 O2 Sat by Pulse 97 Oximetry Procedures - Laceration Laceration #1 Consent Obtained: verbal consent Indication: laceration Site: other (finger left index) Size (cm): 3 Description: linear Anesthetic Used: lidocaine 1% Anesthesia Technique: local infiltration Amount (mls): 3 Pre-repair: wound explored, irrigated extensively, deep structures intact, foreign body removed (attempted exploration but cannot identify the foreign body... irrigated extensively) Type of Sutures: nylon Size of Sutures: 5-0 Number of Sutures: 7 Technique: simple, interrupted Patient Tolerated Procedure: well, no complications Medical Decision Making - Medical Decision Making 55-year-old male presented for finger laceration and attempt at foreign body removal was made however after expiration irrigation was not noted. Laceration repair patient tolerated well by obvious signs of tendon injury tendon sheath appears intact but is exposed. Patient placed on antibiotics he states his tetanus is for sure up-to-date within the last 10 years. He denies any other areas of injury at this time I feel patient is stable for discharge with outpatient orthopedic follow-up and oral antibiotics Disposition Clinical Impression: Laceration of left index finger Disposition: HOME SELF-CARE Condition: Good Instructions (If sedation given, give patient instructions): Finger Laceration (ED) Additional Instructions: Please use medication as discussed. Please follow-up with family doctor in the next 2 days, any changes in range of motion or limitations in strength please follow-up with orthopedic right away or return to the emergency department. Watch for signs of infection as discussed.. Please return to emergency room if the symptoms increase or worsen or for any other concerns. Prescriptions: Cephalexin [Keflex] 500 mg PO Q8HR 7 Days #21 cap Is patient prescribed a controlled substance at d/c from ED?: No Referrals: Farhan Harris MD [Primary Care Provider] - 1-2 days Ko Moreland MD [STAFF PHYSICIAN] - 1-2 days Time of Disposition: 17:01
== END 2020-04-16 17:11 | disposition home or self-care (01) ==
LOC: EC 15:33
DX: S61.211A Laceration without foreign body of left index finger without damage to nail, initial encounter (principal); G89.29 Other chronic pain; M54.9 Dorsalgia, unspecified; H54.61 Unqualified visual loss, right eye, normal vision left eye; F17.200 Nicotine dependence, unspecified, uncomplicated; W26.8XXA Contact with other sharp object(s), not elsewhere classified, initial encounter
CPT/HCPCS: 73140; 99283; 12002; J2001

== ENCOUNTER 2020-08-11 10:33 | Emergency (ER) | payer OTHER ==
[2020-08-11] MEDS ORDERED: SODIUM CHLORIDE 0.9% 1,000 ML IV STA (10:51)
[2020-08-11] MEDS ORDERED: ACETAMINOPHEN TAB 500 MG TAB PO STA (10:52)
--- NOTE | 2020-08-11 10:53 | ED ---
General Adult HPI - General Chief complaint: Chest Pain Stated complaint: chest pain Time Seen by Provider: 08/11/20 10:36 Source: EMS Mode of arrival: EMS Limitations: no limitations - History of Present Illness Initial comments: Dictation was produced using [employer] dictation software. please excuse any grammatical, word or spelling errors. Chief Complaint: 55-year-old male presents to the emergency department for fever or chest pain 3 days History of Present Illness: 55-year-old male he has no significant comorbidities. For the last 3 days has been having fever, chest pain. Patient states that pain is to his anterior chest. His symptoms started 3 days ago with runny nose and sore throat. Those symptoms have improved. He does have a nonproductive cough. He did get his coronavirus vaccines several weeks ago. No obvious sick contacts. No runny nose. Patient has no other complaints. The ROS documented in this emergency department record has been reviewed and confirmed by me. Those systems with pertinent positive or negative responses have been documented in the HPI. All other systems are other negative and/or noncontributory. PHYSICAL EXAM: General Impression: Alert and oriented x3, not in acute distress HEENT: Normocephalic atraumatic, extra-ocular movements intact, pupils equal and reactive to light bilaterally, mucous membranes moist. Cardiovascular: Heart regular rate and rhythm Chest: Able to complete full sentences, no retractions, no tachypnea, lungs clear to auscultation bilaterally Abdomen: abdomen soft, non-tender, non-distended, no organomegaly Musculoskeletal: Pulses present and equal in all extremities, no peripheral edema Motor: no focal deficits noted Neurological: CN II-XII grossly intact, no focal motor or sensory deficits noted Skin: Intact with no visualized rashes Psych: Normal affect and mood ED course: 55-year-old male presents to the emergency Department with respi ratory infectious symptoms. Vital signs upon arrival shows temperature 101.7, heart rate of 104 Laboratory evaluation obtained. CBC is unremarkable. No leukocytosis. Metabolic panel is negative. For panel virus PCR shows negative influenza negative RSV and negative coronavirus. X-rays unremarkable. Repeat vital signs are improved. Patient reevaluated bedside, been stable medical condition. At this point highly doubt that patient's symptoms are secondary to bacterial pneumonia however he could have pneumonia us without radiographic evidence. More than likely patient suffers from viral URI. Patient given prescription for antibiotics and he is told to hold and see if his symptoms get better. Advised continue taking an antipyretics for his fever. Instructed to follow-up with primary care physician. EKG interpretation: Ventricular rate 96, normal sinus rhythm, CA interval 126, Q RS 78, QTC 419. No CA prolongation, no QTC prolongation, no ST or T-wave changes noted. Overall, this EKG is unremarkable - Related Data Home Medications Medication Instructions Recorded Confirmed oxyCODONE-APAP 10-325MG [Percocet 1 tab PO QID 03/04/17 08/11/20 10-325 mg] Acetaminophen Tab [Tylenol Tab] 500 mg PO Q6H PRN 08/11/20 08/11/20 Ibuprofen [Motrin Ib] 200 mg PO Q6H PRN 08/11/20 08/11/20 Previous Rx's Medication Instructions Recorded Azithromycin [Zithromax Z-pack] 0 mg PO DIRECTED #6 tab 08/11/20 Allergies Allergy/AdvReac Type Severity Reaction Status Date / Time No Known Allergies Allergy Verified 08/11/20 11:09 Review of Systems ROS Statement: Those systems with pertinent positive or pertinent negative responses have been documented in the HPI. ROS Other: All systems not noted in ROS Statement are negative. Past Medical History Past Medical History: No Reported History Additional Past Medical History / Comment(s): chronic back pain, Blind in right eye, torn muscle in left shoulder History of Any Multi-Drug Resistant Organisms: None Reported Past Surgical History: Hernia Repair, Tonsillectomy Past Psychological History: No Psychological Hx Reported Smoking Status: Current every day smoker Past Alcohol Use History: None Reported Past Drug Use History: None Reported General Exam Limitations: no limitations Course Vital Signs 08/11/20 08/11/20 08/11/20 10:36 12:03 12:26 Temperature 101.7 F H 98.8 F Pulse Rate 104 H 82 83 Respiratory 18 16 16 Rate Blood Pressure 122/83 107/70 115/69 O2 Sat by Pulse 95 99 99 Oximetry Medical Decision Making - Lab Data Result diagrams: 08/11/20 10:48 08/11/20 10:48 Lab Results 08/11/20 08/11/20 08/11/20 Range/Units 10:48 10:48 10:48 WBC 5.5 (3.8-10.6) k/uL RBC 5.76 (4.30-5.90) m/uL Hgb 17.6 H (13.0-17.5) gm/dL Hct 49.7 (39.0-53.0) % MCV 86.2 (80.0-100.0) fL MCH 30.5 (25.0-35.0) pg MCHC 35.3 (31.0-37.0) g/dL RDW 13.0 (11.5-15.5) % Plt Count 190 (150-450) k/uL MPV 7.5 Neutrophils % 66 % Lymphocytes % 19 % Monocytes % 11 % Eosinophils % 0 % Basophils % 1 % Neutrophils # 3.6 (1.3-7.7) k/uL Lymphocytes # 1.1 (1.0-4.8) k/uL Monocytes # 0.6 (0-1.0) k/uL Eosinophils # 0.0 (0-0.7) k/uL Basophils # 0.0 (0-0.2) k/uL Sodium 137 (137-145) mmol/L Potassium 4.2 (3.5-5.1) mmol/L Chloride 104 (98-107) mmol/L Carbon Dioxide 20 L (22-30) mmol/L Anion Gap 13 mmol/L BUN 19 (9-20) mg/dL Creatinine 0.94 (0.66-1.25) mg/dL Est GFR (CKD-EPI)AfAm >90 (>60 ml/min/1.73 sqM) Est GFR (CKD-EPI)NonAf >90 (>60 ml/min/1.73 sqM) Glucose 101 H (74-99) mg/dL Calcium 8.6 (8.4-10.2) mg/dL Influenza Type A (PCR) Not Detected (Not Detectd) Influenza Type B (PCR) Not Detected (Not Detectd) RSV (PCR) Not Detected (Not Detectd) SARS-CoV-2 (PCR) Not Detected (Not Detectd) Disposition Clinical Impression: Cough Disposition: HOME SELF-CARE Condition: Fair Instructions (If sedation given, give patient instructions): Upper Respiratory Infection (ED) Prescriptions: Azithromycin [Zithromax Z-pack] 0 mg PO DIRECTED #6 tab Is patient prescribed a controlled substance at d/c from ED?: No Referrals: Farhan Harris MD [Primary Care Provider] - 1-2 days
--- NOTE | 2020-08-11 11:04 | XR ---
EXAMINATION TYPE: XR chest 1V portable DATE OF EXAM: 08/11/2020 HISTORY: Shortness of breath. COMPARISON: 02/27/2016 TECHNIQUE: Single view of the chest is submitted. FINDINGS: Demonstrated are scattered senescent parenchymal change. There is no evidence for focal infiltrate. The heart is stable. Hilar and mediastinal structures are within normal limits. Degenerative changes are seen of the dorsal spine. IMPRESSION: 1. Chronic changes without evidence for acute pulmonary disease.
[2020-08-11 11:16] LABS: Basophils % (A) 1 %; Eosinophils % (A) 0 %; HCT 49.7 % (39.0-53.0); HGB 17.6 gm/dL (13.0-17.5); Lymphocytes # (A) 1.1 k/uL (1.0-4.8); Lymphocytes % (A) 19 %; MCH 30.5 pg (25.0-35.0); MCHC 35.3 g/dL (31.0-37.0); MCV 86.2 fL (80.0-100.0); Mean Platelet Volume 7.5; Monocytes # (A) 0.6 k/uL (0-1.0); Monocytes % (A) 11 %; Neutrophils # (A) 3.6 k/uL (1.3-7.7); Neutrophils % (A) 66 %; Platelet Count 190 k/uL (150-450); RBC 5.76 m/uL (4.30-5.90); WBC 5.5 k/uL (3.8-10.6)
[2020-08-11 11:17] LABS: African American GFR (CKD) >90 (>60 ml/min/1.73 sqM); Anion Gap 13 mmol/L; Blood Urea Nitrogen 19 mg/dL (9-20); Calcium 8.6 mg/dL (8.4-10.2); Carbon Dioxide 20 mmol/L (22-30); Chloride 104 mmol/L (98-107); Glucose 101 mg/dL (74-99); Non-African American GFR(CKD) >90 (>60 ml/min/1.73 sqM); Potassium 4.2 mmol/L (3.5-5.1); Sodium 137 mmol/L (137-145)
[2020-08-11 12:05] VITALS: RESP 16
[2020-08-11 12:27] VITALS: BP 115/69; PULSE 83; TEMP 98.8
== END 2020-08-11 13:02 | disposition home or self-care (01) ==
LOC: EC 10:33
DX: R05 Cough (principal); R07.89 Other chest pain; R50.9 Fever, unspecified; R09.89 Other specified symptoms and signs involving the circulatory and respiratory systems; F17.200 Nicotine dependence, unspecified, uncomplicated; Z20.822 Contact with and (suspected) exposure to COVID-19
CPT/HCPCS: 36415; 71045; 80048; 85025; 87636; 93005; 96360; 96361; 99285

== ENCOUNTER → 2023-12-28 | Outpatient (CLI) | payer OTHER ==
--- NOTE | 2023-12-28 20:47 | CTL ---
EXAMINATION TYPE: CT Low Dose Lung DATE OF EXAM: 12/28/2023 7:25 AM COMPARISON: None. CLINICAL INDICATION: Male, 58 years old with history of Z12.2 ENCNTR SCREEN FOR MALIGNANT NEOPLASM OF RESP, Personal hx nicotine dependence 2 ppd x 37 years current smoker no concerns, Lung cancer scre ening, History of tobacco use. TECHNIQUE: Low dose computed tomography scan was performed through the chest at 1 mm thick sections a nd reconstructed images in the coronal plane at 1 mm thick sections. Contrast used: mL of , (none if empty) Oral contrast used: (none if empty) CT DLP: 96.70 mGycm, Automated exposure control for dose reduction was used. CT CTDI: 2.6 mGy, Automated exposure control for dose reduction was used. SCREENING VISIT: Initial CT DIAGNOSTIC QUALITY: Satisfactory FINDINGS: LUNG NODULES: None. LUNGS: COPD: Severity: None Fibrosis: Severity: None Lymph nodes: None Other findings: None RIGHT PLEURAL SPACE: Effusion: None Calcification: None Thickening: None Pneumothorax: None LEFT PLEURAL SPACE: Effusion: None Calcification: None Thickening: None Pneumothorax: None HEART: Other: Ascending thoracic aorta at the level the main pulmonary artery measures 3.0 cm. The main pul monary artery at the bifurcation measures 2.6 cm. Heart Size: Normal Coronary calcification: None Pericardial effusion: None OTHER FINDINGS: Upper abdomen: Normal Bony thorax: Normal Supraclavicular region: Normal IMPRESSION: 1. No suspicious changes to suggest primary or metastatic neoplasm. FOLLOW UP CT CHEST RECOMMENDATION: Follow-up low-dose CT chest with CT LUNG RAD: Lung-Rad 1 Negative [facility], , 12/28/2023 8:44 PM
== END | disposition home or self-care (01) ==
LOC: RADCTMAIN 06:53
PROVIDERS: ATTEND Family Medicine
DX: Z12.2 Encounter for screening for malignant neoplasm of respiratory organs (principal); F17.210 Nicotine dependence, cigarettes, uncomplicated
CPT/HCPCS: 71271